=== PATIENT | male | born 1985 | race Caucasian/White ===

== ENCOUNTER 2018-12-25 07:55 | Emergency (ER) | payer BC ==
[2018-12-25] MEDS ORDERED: Sodium Chloride 0.9% 1,000 ML IV ONE (08:23)
[2018-12-25] MEDS ORDERED: Sodium Chloride 0.9% 2.5 ML Syringe FLUSH PRN (08:24)
[2018-12-25] MEDS ORDERED: Sodium Chloride 0.9% 10 ML Syringe FLUSH PRN (08:24)
--- NOTE | 2018-12-25 08:38 | EDM.PDOC ---
<Rachel Dick - Last Filed: 12/25/18 09:04> ED HPI GENERAL MEDICAL PROBLEM - General Chief Complaint: Gastrointestinal Problem Stated Complaint: BLOOD PRESSURE Time Seen by Provider: 12/25/18 08:34 - History of Present Illness INITIAL COMMENTS - FREE TEXT/NARRATIVE: This is Dr. Dick dictating addendum note as I am the supervising physician on this case. History and physical are as above in the patient on my personal evaluation is nontoxic exam as described with no acute findings. His history is somewhat vague and he does have a provider at [facility] with whom he has not discussed the symptoms. We will proceed with the care plan as above and advised him for follow-up with his provider for further discussion about his blood pressure and these other symptomatology. He and I did discuss dietary changes with more focus on sodium and salt in his diet and attempt to reduce that as this may help correct his blood pressure somewhat without medication. He states understanding. - Related Data Allergies Allergy/AdvReac Type Severity Reaction Status Date / Time No Known Allergies Allergy Verified 12/25/18 08:05 Home Meds: Home Meds Cetirizine [ZyrTEC] 10 mg PO BEDTIME 10/01/15 [History] Fluticasone Propionate [Flonase Allergy Relief] 1 spray NS DAILY 10/01/15 [ History] Course - Vital Signs Last Recorded V/S: Last Vital Signs Temp 35.8 C 12/25/18 08:06 Pulse 94 12/25/18 08:06 Resp 18 12/25/18 08:06 BP 142/91 H 12/25/18 08:06 Pulse Ox 99 12/25/18 08:06 - Orders/Labs/Meds Orders: Active Orders 24 hr Category Date Time Status EKG Documentation Completion [RC] STAT Care 12/25/18 08:23 Active CULTURE STREP A CONFIRMATION [] Stat Lab 12/25/18 08:46 Results STREP SCRN A RAPID W CULT CONF [] Stat Lab 12/25/18 08:46 Results Sodium Chloride 0.9% [Saline Flush] Med 12/25/18 08:24 Active 10 ml FLUSH ASDIRECTED PRN Sodium Chloride 0.9% [Saline Flush] Med 12/25/18 08:24 Active 2.5 ml FLUSH ASDIRECTED PRN Saline Lock Insert [OM.PC] Stat Oth 12/25/18 08:24 Ordered Medication Orders Sodium Chloride (Saline Flush) 10 ml FLUSH ASDIRECTED PRN PRN Reason: Keep Vein Open Last Admin: 12/25/18 08:48 Dose: 10 ml Sodium Chloride (Saline Flush) 2.5 ml FLUSH ASDIRECTED PRN PRN Reason: Keep Vein Open Last Admin: 12/25/18 08:49 Dose: 2.5 ml Labs: Laboratory Tests 12/25/18 12/25/18 Range/Units 08:32 08:32 WBC 7.38 (4.0-11.0) K/uL RBC 5.63 (4.50-5.90) M/uL Hgb 16.9 (13.0-17.0) g/dL Hct 49.5 (38.0-50.0) % MCV 87.9 (80.0-98.0) fL MCH 30.0 (27.0-32.0) pg MCHC 34.1 (31.0-37.0) g/dL RDW Std Deviation 42.2 (28.0-62.0) fl RDW Coeff of Rima 13 (11.0-15.0) % Plt Count 187 (150-400) K/uL MPV 9.40 (7.40-12.00) fL Neut % (Auto) 70.1 (48.0-80.0) % Lymph % (Auto) 15.3 L (16.0-40.0) % Vernon % (Auto) 13.3 (0.0-15.0) % Eos % (Auto) 1.2 (0.0-7.0) % Baso % (Auto) 0.1 (0.0-1.5) % Neut # (Auto) 5.2 (1.4-5.7) K/uL Lymph # (Auto) 1.1 (0.6-2.4) K/uL Vernon # (Auto) 1.0 H (0.0-0.8) K/uL Eos # (Auto) 0.1 (0.0-0.7) K/uL Baso # (Auto) 0.0 (0.0-0.1) K/uL Nucleated RBC % 0.0 /100WBC Nucleated RBCs # 0 K/uL Sodium 140 (136-148) mmol/L Potassium 3.8 (3.5-5.1) mmol/L Chloride 104 (98-107) mmol/L Carbon Dioxide 26.9 (21.0-32.0) mmol/L BUN 18 (7.0-18.0) mg/dL Creatinine 1.0 (0.8-1.3) mg/dL Est Cr Clr Drug Dosing 109.81 mL/min Estimated GFR (MDRD) > 60.0 ml/min Glucose 113 H (74-106) mg/dL Calcium 9.2 (8.5-10.1) mg/dL Total Bilirubin 0.6 (0.2-1.0) mg/dL AST 27 (15-37) IU/L ALT 39 (14-63) IU/L Alkaline Phosphatase 91 (46-116) U/L Total Protein 8.3 H (6.4-8.2) g/dL Albumin 4.0 (3.4-5.0) g/dL Globulin 4.3 H (2.6-4.0) g/dL Albumin/Globulin Ratio 0.9 (0.9-1.6) TSH 3rd Generation 4.16 H (0.36-3.74) uIU/mL Meds: Medications Generic Name Dose Route Start Last Admin Trade Name Freq PRN Reason Stop Dose Admin Sodium Chloride 10 ml 12/25/18 08:24 12/25/18 08:48 Saline Flush FLUSH 10 ml ASDIRECTED PRN Administration Keep Vein Open Sodium Chloride 2.5 ml 12/25/18 08:24 12/25/18 08:49 Saline Flush FLUSH 2.5 ml ASDIRECTED PRN Administration Keep Vein Open Discontinued Medications Generic Name Dose Route Start Last Admin Trade Name Freq PRN Reason Stop Dose Admin Sodium Chloride 1,000 mls @ 999 mls/hr 12/25/18 08:23 12/25/18 08:47 Normal Saline IV 12/25/18 09:23 999 mls/hr STAT ONE Administration Departure - Departure Disposition: Home, Self-Care 01 Clinical Impression: Nausea & vomiting - Discharge Information Referrals: [facility] [Primary Care Provider] - Forms: ED Department Discharge Additional Instructions: Please follow-up with your PCP to recheck TSH and blood pressure. - My Orders Last 24 Hours: My Active Orders 12/25/18 08:23 EKG Documentation Completion [RC] STAT 12/25/18 08:24 Sodium Chloride 0.9% [Saline Flush] 10 ml FLUSH ASDIRECTED PRN Sodium Chloride 0.9% [Saline Flush] 2.5 ml FLUSH ASDIRECTED PRN Saline Lock Insert [OM.PC] Stat 12/25/18 08:46 CULTURE STREP A CONFIRMATION [RM] Stat STREP SCRN A RAPID W CULT CONF [RM] Stat - Assessment/Plan Last 24 Hours: My Active Orders 12/25/18 08:23 EKG Documentation Completion [RC] STAT 12/25/18 08:24 Sodium Chloride 0.9% [Saline Flush] 10 ml FLUSH ASDIRECTED PRN Sodium Chloride 0.9% [Saline Flush] 2.5 ml FLUSH ASDIRECTED PRN Saline Lock Insert [OM.PC] Stat 12/25/18 08:46 CULTURE STREP A CONFIRMATION [RM] Stat STREP SCRN A RAPID W CULT CONF [RM] Stat <Cullen Munguia - Last Filed: 12/25/18 09:28> ED HPI GENERAL MEDICAL PROBLEM - History of Present Illness INITIAL COMMENTS - FREE TEXT/NARRATIVE: 33 y/o male here for nausea, vomiting. States that for the past 1 week he has been feeling tired, nauseous, headache. Has been having sore throat. No cough, fevers. Poor appetite with some vomiting yesterday. No abdominal pain, dysuria, diarrhea. States he went camping to [place] [employer] about 2 weeks ago. Found a tick in his tent. Nothing on body, no rashes. Denies any alcohol, tobacco intake. No illicit drugs. This morning he noticed BP 140/90's. Tender to palpation on left chest area. No history of heart disease or diabetes. Denies radiation to neck or arms. Lives in [place]. with children. No other sick family members. Past Medical History HEENT History: Reports: Allergic Rhinitis Oncologic (Cancer) History: Reports: Other (See Below) Other Oncologic History: testicular cancer - Infectious Disease History Infectious Disease History: Reports: Chicken Pox Other Infectious Disease History: childhood - Past Surgical History Other Male Surgeries/Procedures: left testicle removed Oncologic Surgical History: Reports: Other (See Below) Social & Family History - Family History Family Medical History: Noncontributory - Tobacco Use Smoking Status *Q: Never Smoker - Recreational Drug Use Recreational Drug Use: No ED ROS GENERAL - Review of Systems Review Of Systems: ROS reveals no pertinent complaints other than HPI. ED EXAM, GI/ABD - Physical Exam Exam: See Below General Appearance: Alert, WD/WN, Anxious Throat/Mouth: Other (dry mucous membranes, thrush with enlarged tonsils. ) Neck: Supple, Non-Tender Respiratory/Chest: No Respiratory Distress, Lungs Clear, Normal Breath Sounds Cardiovascular: Normal Peripheral Pulses, Regular Rate, Rhythm, No Edema GI/Abdominal Exam: Normal Bowel Sounds, Soft, Non-Tender, No Distention Back Exam: Normal Inspection, Full Range of Motion. No: CVA Tenderness (L), CVA Tenderness (R) Extremities: Normal Inspection, No Pedal Edema Neurological: Alert, Oriented Course - Vital Signs Text/Narrative:: Lab work unremarkable except for mildly elevated TSH. Gave 1 L NS. Feeling better. Advised him to follow-up with his PCP to recheck BP. - Orders/Labs/Meds Labs: Laboratory Tests 12/25/18 12/25/18 Range/Units 08:32 08:32 WBC 7.38 (4.0-11.0) K/uL RBC 5.63 (4.50-5.90) M/uL Hgb 16.9 (13.0-17.0) g/dL Hct 49.5 (38.0-50.0) % MCV 87.9 (80.0-98.0) fL MCH 30.0 (27.0-32.0) pg MCHC 34.1 (31.0-37.0) g/dL RDW Std Deviation 42.2 (28.0-62.0) fl RDW Coeff of Rima 13 (11.0-15.0) % Plt Count 187 (150-400) K/uL MPV 9.40 (7.40-12.00) fL Neut % (Auto) 70.1 (48.0-80.0) % Lymph % (Auto) 15.3 L (16.0-40.0) % Vernon % (Auto) 13.3 (0.0-15.0) % Eos % (Auto) 1.2 (0.0-7.0) % Baso % (Auto) 0.1 (0.0-1.5) % Neut # (Auto) 5.2 (1.4-5.7) K/uL Lymph # (Auto) 1.1 (0.6-2.4) K/uL Vernon # (Auto) 1.0 H (0.0-0.8) K/uL Eos # (Auto) 0.1 (0.0-0.7) K/uL Baso # (Auto) 0.0 (0.0-0.1) K/uL Nucleated RBC % 0.0 /100WBC Nucleated RBCs # 0 K/uL Sodium 140 (136-148) mmol/L Potassium 3.8 (3.5-5.1) mmol/L Chloride 104 (98-107) mmol/L Carbon Dioxide 26.9 (21.0-32.0) mmol/L BUN 18 (7.0-18.0) mg/dL Creatinine 1.0 (0.8-1.3) mg/dL Est Cr Clr Drug Dosing 109.81 mL/min Estimated GFR (MDRD) > 60.0 ml/min Glucose 113 H (74-106) mg/dL Calcium 9.2 (8.5-10.1) mg/dL Total Bilirubin 0.6 (0.2-1.0) mg/dL AST 27 (15-37) IU/L ALT 39 (14-63) IU/L Alkaline Phosphatase 91 (46-116) U/L Total Protein 8.3 H (6.4-8.2) g/dL Albumin 4.0 (3.4-5.0) g/dL Globulin 4.3 H (2.6-4.0) g/dL Albumin/Globulin Ratio 0.9 (0.9-1.6) TSH 3rd Generation 4.16 H (0.36-3.74) uIU/mL Departure - Departure Time of Disposition: 09:27 - Discharge Information *PRESCRIPTION DRUG MONITORING PROGRAM REVIEWED*: Not Applicable *COPY OF PRESCRIPTION DRUG MONITORING REPORT IN PATIENT UDAY: Not Applicable
[2018-12-25 09:07] LABS: CHLORIDE,CL 104 mmol/L (98-107); SODIUM,NA 140 mmol/L (136-148)
[2018-12-25 09:40] VITALS: BP 126/84
== END 2018-12-25 09:40 | disposition home or self-care (01) ==
LOC: MW.ED 07:55
DX: R11.2 Nausea with vomiting, unspecified (principal)
CPT/HCPCS: 36415; 80053; 84443; 85025; 87081; 87880; 93005; 96360; 99283; J7040

== ENCOUNTER 2025-02-25 09:04 | Emergency (ER) | payer BC ==
[2025-02-25] MEDS ORDERED: Sodium Chloride 0.9% 10 ML Syringe FLUSH PRN (09:18)
[2025-02-25] MEDS ORDERED: Sodium Chloride 0.9% 2.5 ML Syringe FLUSH PRN (09:18)
[2025-02-25 09:24] LABS: BASOPHILS ABSOLUTE AUTO 0.03 K/uL (0.00-0.20); BASOPHILS PERCENT AUTO 0.3 % (0.0-1.0); EOSINOPHILS ABSOLUTE AUTO 0.08 K/uL (0.00-0.45); EOSINOPHILS PERCENT AUTO 0.7 % (0.0-6.0); IMMATURE GRAN ABSOLUTE AUTO 0.02 K/uL (0.00-0.05); IMMATURE GRAN PERCENT AUTO 0.2 % (0.0-0.4); LYMPHOCYTES ABSOLUTE AUTO 1.26 K/uL (1.00-4.80); LYMPHOCYTES PERCENT AUTO 11.0 % (24.0-44.0); MEAN PLATELET VOLUME 9.0 fL (9.4-12.4); MONOCYTES ABSOLUTE AUTO 0.91 K/uL (0.00-0.80); MONOCYTES PERCENT AUTO 7.9 % (0.0-8.0); NEUTROPHILS ABSOLUTE AUTO 9.19 K/uL (1.80-7.70); NEUTROPHILS PERCENT AUTO 79.9 % (41.0-71.0); NRBC ABSOLUTE 0.00 K/uL (0.00-0.02); NRBC PERCENT 0.0 /100WBC (0.0-0.2); PLATELET COUNT,PLT 268 K/uL (150-400); RED BLOOD CELL COUNT 5.82 M/uL (4.52-5.90); WHITE BLOOD CELL COUNT,WBC 11.49 K/uL (3.9-11.3)
[2025-02-25 09:56] LABS: A/G RATIO 1.0 (0.9-1.6); ALANINE AMINOTRANSFERASE,ALT 49.0 IU/L (14-63); ASPARTATE AMNIOTRANSFERASE,AST 27.0 IU/L (15-37); BILIRUBIN TOTAL 0.6 mg/dL (0.2-1.0); BLOOD UREA NITROGEN,BUN 15.0 mg/dL (7.0-18.0); CARBON DIOXIDE,CO2 26.0 mmol/L (21.0-32.0); CHLORIDE,CL 103.0 mmol/L (98-107); CREATININE 1.0 mg/dL (0.8-1.3); EST CRCL DRUG DOSING (CG) 103.54 mL/min; ESTIMATED GFR 97.0 mL/min (>60); GLUCOSE RANDOM 103.0 mg/dL (74-106); POTASSIUM,K 3.9 mmol/L (3.5-5.1); PROTEIN TOTAL,TP 8.6 g/dL (6.4-8.2); SODIUM,NA 140.0 mmol/L (136-148)
[2025-02-25] MEDS: Ketorolac 30 MG/ML SDV IVPUSH ONE (10:04)
[2025-02-25 10:38] VITALS: BP 131/89; PULSE 70
== END 2025-02-25 10:32 | disposition home or self-care (01) ==
LOC: MW.ED 09:04
DX: R07.9 Chest pain, unspecified (principal); Z79.899 Other long term (current) drug therapy; Z79.51 Long term (current) use of inhaled steroids
CPT/HCPCS: 36415; 71046; 80053; 84484; 85025; 93005; 96374; 99285; J1885; 93010; 99283